=== PATIENT | female | born 1965 | race Caucasian/White ===

== ENCOUNTER 2016-12-18 19:48 | Emergency (ER) | payer BC ==
[~2016-12-18] VITALS: Ht 157.5 cm; Wt 72.8 kg
[2016-12-18 21:16] LABS: CHLORIDE 106 mEq/L (99-109); POTASSIUM 4.1 mEq/L (3.7-5.4); SODIUM 141 mEq/L (136-147)
[2016-12-18 21:17] LABS: GLUCOSE 104 mg/dL (70-99)
[2016-12-18 21:19] LABS: ANION GAP 9 MEQ/L (2-14)
[2016-12-18 21:20] LABS: HEMATOCRIT 40.1 % (36.0-46.0); MCH 30.2 PG (29.0-34.0); MCHC 33.7 G/DL (30.0-36.0); MCV 89.7 FL (83-99); MEAN PLAT.VOLUME 10.8 uM^3 (9.5-12.4); PLATELET COUNT 216 K/uL (156-360); RED BLOOD COUNT 4.47 M/uL (3.80-5.20); WHITE BLOOD COUNT 7.3 K/uL (4.1-10.2)
[2016-12-18 21:21] LABS: GFR ESTIMATE (CALCULATED) > 59 mL/min/
[2016-12-18 21:22] LABS: UREA NITROGEN (BUN) 12 mg/dL (9-23)
[2016-12-18 21:25] LABS: TROP-I INTERPRETATION NEGATIVE; TROPONIN-I < 0.01 ng/mL (0.0-0.30)
[2016-12-19 00:50] LABS: TROP-I INTERPRETATION NEGATIVE; TROPONIN-I < 0.01 ng/mL (0.0-0.30)
[2016-12-19 01:30] VITALS: BP 100/66
== END 2016-12-19 01:38 | disposition home or self-care (01) ==
LOC: EME 19:48
PROVIDERS: Emergency Medicine
DX: R07.9 Chest pain, unspecified (principal); Z82.49 Family history of ischemic heart disease and other diseases of the circulatory system; Z88.0 Allergy status to penicillin
CPT/HCPCS: 71020; 80048; 84484; 85027; 93005; 99281; 99285